=== PATIENT | female | born 1955 | race Asian ===

== ENCOUNTER → 2018-03-13 | Outpatient (CLI) | payer MEDICARE, OTHER ==
[~2018-03-13] MED LIST: ASPI-556 PO; ATOR40TA28 PO; HYDROCHLORTHIAZIDE PO; LEVO50 PO; LISI-662 PO; NAPR-1181; PERCT PO; POTA8TAB4 PO
[2018-03-13 17:12] LABS: APPEARANCE,URINE CLEAR (CLEAR); BILIRUBIN,URINE NEGATIVE (NEGATIVE); GLUCOSE, URINE (UA) NEGATIVE (NEGATIVE); KETONES,URINE NEGATIVE (NEGATIVE); LEUKOCYTE ESTERASE ,URINE NEGATIVE (NEGATIVE); NITRATE,URINE NEGATIVE (NEGATIVE); OCCULT BLOOD,URINE NEGATIVE (NEGATIVE); PROTEIN,URINE NEGATIVE (NEGATIVE); UROBILINOGEN,URINE 0.2 mg/dL (<=1.0)
== END | disposition home or self-care (01) ==
LOC: LABPV 14:47
PROVIDERS: ATTEND Internal Medicine Pulmonary Disease
DX: N32.81 Overactive bladder (principal); R35.1 Nocturia
CPT/HCPCS: 87086